=== PATIENT | female | born 1995 | race Caucasian/White ===

== ENCOUNTER 2020-12-17 06:08 | Inpatient (IN) ==
[2020-12-17] MEDS ORDERED: Ringers Solution, Lactated 1,000 ML IVC SCH (06:15)
[2020-12-17] MEDS ORDERED: Azithromycin 500 MG in 0.9 % Sodium Chloride 250 ML IVPB ONE (06:15)
[2020-12-17] MEDS ORDERED: Lidocaine 1% 20 ML MDV INFILT PRN (06:15)
[2020-12-17] MEDS ORDERED: Naloxone 0.4 MG/ML INJ IVP PRN (06:15)
[2020-12-17] MEDS ORDERED: Metoclopramide 10 MG/2 ML VIAL IVP PRN (06:15)
[2020-12-17] MEDS ORDERED: Oxytocin 20 units/ LR 1000 mL 20 UNIT/1,000 ML BAG IVC SCH ×2 (06:15→23:15)
[2020-12-17] MEDS ORDERED: Famotidine 20 MG/2 ML VIAL IVP PRN (06:15)
[2020-12-17] MEDS ORDERED: *HR* FentaNYL (PF) 100 MCG/2 ML VIAL IVP PRN (06:15)
[2020-12-17] MEDS ORDERED: Ondansetron 4 MG/2 ML VIAL IVP PRN (06:15)
[2020-12-17 07:00] LABS: Basophils % 0.3 %; Eosinophils # 0.3 K/mcL (0.0-0.6); Eosinophils % 3.3 %; Hemoglobin 11.8 g/dL (11.5-15.4); Immature Granulocytes % 0.7 % (0-4); Mean Corpuscular HGB Conc 33.7 g/dL (31.6-35.5); Mean Corpuscular Hemoglobin 29.8 pg (28.0-33.3); Mean Corpuscular Volume 88.4 fL (83.0-100.0); Mean Platelet Volume 10.9 fL (9.4-12.4); Monocytes % 10.5 %; Neutrophils # 5.8 K/mcL (1.6-8.9); Platelet Count 225 K/mcL (140-400); Red Blood Count 3.96 M/mcL (3.82-4.97); Red Cell Distribution Width 13.1 % (11.5-14.5); Segmented Neutrophils % 63.2 %; White Blood Count 9.1 K/mcL (4.3-11.1)
[2020-12-17] MEDS: miSOPROStoL 25 MCG TABLET PO PRN ×2 (07:52→12:52)
[2020-12-17 07:59] LABS: Influenza A PCR Negative (Negative); Influenza B PCR Negative (Negative); Resp. Syncytial Virus PCR Negative (Negative)
[2020-12-17] MEDS ORDERED: EPHEDrine 50 MG/ML VIAL IVP PRN (07:59)
[2020-12-17] MEDS ORDERED: Epidural Premix (fent/bupiv) 110 ML EP SCH (08:00)
[2020-12-17 08:08] LABS: SARS-CoV-2 by PCR (In House) Negative (Negative)
[2020-12-17 08:35] LABS: Amphetamine Screen,Urine Negative ng/mL (Cutoff=1000); Barbiturate Screen,Urine Negative ng/mL (Cutoff=200)
[2020-12-17 08:36] LABS: Benzodiazepines Screen,Urine Negative ng/mL (Cutoff=300); Cannabinoid Screen,Urine Negative ng/mL (Cutoff = 50); Cocaine Screen,Urine Negative ng/mL (Cutoff= 300); Opiate Screen,Urine Negative ng/mL (Cutoff=300); Phencyclidine Screen,Urine Negative ng/mL (Cutoff=25)
[2020-12-17] MEDS ORDERED: miSOPROStoL 25 MCG TABLET VG ONE (16:57)
[2020-12-17 17:25] LABS: Basophils % 0.3 %; Eosinophils # 0.2 K/mcL (0.0-0.6); Eosinophils % 2.1 %; Hematocrit 35.1 % (35.3-44.9); Hemoglobin 11.9 g/dL (11.5-15.4); Immature Granulocytes % 0.5 % (0-4); Lymphocytes # 1.7 K/mcL (0.6-4.6); Lymphocytes % 15.4 %; Mean Corpuscular HGB Conc 33.9 g/dL (31.6-35.5); Mean Corpuscular Hemoglobin 30.2 pg (28.0-33.3); Mean Corpuscular Volume 89.1 fL (83.0-100.0); Mean Platelet Volume 10.8 fL (9.4-12.4); Monocytes % 9.2 %; Neutrophils # 8.1 K/mcL (1.6-8.9); Platelet Count 216 K/mcL (140-400); Red Blood Count 3.94 M/mcL (3.82-4.97); Red Cell Distribution Width 13.1 % (11.5-14.5); Segmented Neutrophils % 72.5 %; White Blood Count 11.2 K/mcL (4.3-11.1)
[2020-12-17 17:44] LABS: Aspartate Amino Transferase 12 Units/L (13-39); BUN/Creatinine Ratio 22 (6-26); Blood Urea Nitrogen 8 mg/dL (6-20); eGFR For African Americans > 60 (> 60); eGFR For Non-African Americans > 60 (> 60)
[2020-12-17 19:18] LABS: Protein/Creatinine Ratio,Urine 0.15 mg/mg (0.00-0.20)
[2020-12-17] MEDS ORDERED: Terbutaline 1 MG/ML VIAL SQ ONE ×2 (21:41)
[2020-12-18] MEDS ORDERED: *HR* Nalbuphine 10 MG/ML AMPUL IV PRN (03:37)
[2020-12-18] MEDS ORDERED: *HR* Nalbuphine 10 MG/ML AMPUL ONE (03:39)
[2020-12-18] MEDS ORDERED: Ropivacaine/PF 0.2% 20 ML VIAL ONE (03:54)
[2020-12-18] MEDS ORDERED: *HR* FentaNYL (PF) 100 MCG/2 ML VIAL ONE ×2 (03:54→07:25)
[2020-12-18] MEDS ORDERED: Metoclopramide 10 MG/2 ML VIAL IVP ONE (06:59)
[2020-12-18] MEDS ORDERED: CeFAZolin 2,000 MG/50 ML BAG IVPB ONE (06:59)
[2020-12-18] MEDS ORDERED: Famotidine 20 MG/2 ML VIAL IVP ONE (06:59)
[2020-12-18] MEDS ORDERED: Ringers Solution, Lactated 1,000 ML IVC SCH (07:00)
[2020-12-18] MEDS ORDERED: Azithromycin 500 MG in 0.9 % Sodium Chloride 250 ML IVPB ONE (07:00)
[2020-12-18] MEDS ORDERED: Lidocaine/EPI 1:200k 2% PF 20 ML VIAL ONE (07:24)
[2020-12-18] MEDS ORDERED: *HR* Phenylephrine 10 MG/ML VIAL ONE (07:38)
[2020-12-18] MEDS ORDERED: *HR* Oxytocin 10 UNIT/ML VIAL IM ONE (07:47)
[2020-12-18] MEDS ORDERED: Ringers Solution, Lactated 1,000 ML ONE (07:48)
[2020-12-18] MEDS ORDERED: Ondansetron 4 MG/2 ML VIAL ONE (08:08)
[2020-12-18] MEDS ORDERED: *HR* Morphine Sulfate/PF 10 MG/10 ML AMPUL ONE (08:09)
[2020-12-18] MEDS ORDERED: *HR* Meperidine 25 MG/ML SYRINGE IVP PRN (08:49)
[2020-12-18] MEDS ORDERED: *HR* FentaNYL (PF) 100 MCG/2 ML VIAL IVP PRN (08:49)
[2020-12-18] MEDS ORDERED: Naloxone 0.4 MG/ML INJ IVP PRN ×2 (08:49→11:16)
[2020-12-18] MEDS ORDERED: Ondansetron 4 MG/2 ML VIAL IVP PRN ×2 (08:49→11:16)
[2020-12-18] MEDS ORDERED: Promethazine 6.25 MG in Water for inj. (sterile) 20 ML IVPB PRN (08:49)
[2020-12-18] MEDS ORDERED: *HR* OxyCODONE Immed Rel 5 MG TABLET PO PRN ×2 (08:49→11:16)
[2020-12-18] MEDS ORDERED: Simethicone 80 MG TAB.CHEW PO PRN (11:16)
[2020-12-18] MEDS ORDERED: 0.9 % Sodium Chloride 1,000 ML IVC SCH (11:16)
[2020-12-18] MEDS ORDERED: Sennosides 8.6 MG TABLET PO PRN (11:16)
[2020-12-18] MEDS ORDERED: Acetaminophen 325 MG TABLET PO PRN (11:16)
[2020-12-18] MEDS ORDERED: NON-FORMULARY MEDICATION 1 EACH EACH (Prenatal Caplet 1 TAB) PO SCH (11:16)
[2020-12-18] MEDS ORDERED: Metoclopramide 10 MG/2 ML VIAL IVP PRN (11:16)
[2020-12-18] MEDS: Oxytocin 20 units/ LR 1000 mL 20 UNIT/1,000 ML BAG IVC SCH ×2 (12:08→18:51)
[2020-12-18] MEDS: Prenatal Vit/FA 1 EACH TABLET PO SCH (12:20)
[2020-12-18] MEDS ORDERED: Scopolamine Patch 1.5 MG PATCH.TD72 TD SCH (15:00)
[2020-12-18] MEDS: Ibuprofen 600 MG TABLET PO PRN (20:26)
[2020-12-19] MEDS: Ibuprofen 600 MG TABLET PO PRN ×3 (02:36→16:54)
[2020-12-19 05:47] LABS: Basophils % 0.1 %; Eosinophils # 0.2 K/mcL (0.0-0.6); Eosinophils % 1.6 %; Hematocrit 29.4 % (35.3-44.9); Immature Granulocytes % 0.5 % (0-4); Lymphocytes # 1.3 K/mcL (0.6-4.6); Lymphocytes % 9.1 %; Mean Corpuscular HGB Conc 33.3 g/dL (31.6-35.5); Mean Corpuscular Hemoglobin 30.3 pg (28.0-33.3); Mean Platelet Volume 10.4 fL (9.4-12.4); Monocytes # 1.1 K/mcL (0.0-1.3); Monocytes % 7.9 %; Neutrophils # 11.3 K/mcL (1.6-8.9); Platelet Count 165 K/mcL (140-400); Red Blood Count 3.23 M/mcL (3.82-4.97); Red Cell Distribution Width 13.2 % (11.5-14.5); Segmented Neutrophils % 80.8 %
[2020-12-19 05:50] LABS: Hemoglobin 9.8 g/dL (11.5-15.4)
[2020-12-19] MEDS: Prenatal Vit/FA 1 EACH TABLET PO SCH (08:53)
[2020-12-19] MEDS ORDERED: Lanolin 7 G OINT...G. TP PRN (19:39)
[2020-12-20] MEDS: Ibuprofen 600 MG TABLET PO PRN ×2 (01:22→10:59)
[2020-12-20 08:13] VITALS: BP 124/76
[2020-12-20] MEDS: Prenatal Vit/FA 1 EACH TABLET PO SCH (10:58)
== END 2020-12-20 15:13 | disposition home or self-care (01) | DRG 540 ==
LOC: 1NENULAB 06:08 → 1NENUOBS 12-18 10:58
PROVIDERS: ADMIT Obstetrics & Gynecology; ATTEND Obstetrics & Gynecology